=== PATIENT | female | born 1970 | race Hispanic/Latino ===

== ENCOUNTER 2019-10-20 17:03 | Emergency (ER) | payer OTHER ==
[~2019-10-20] VITALS: Ht 162.6 cm; Wt 80.7 kg
[2019-10-20] MEDS ORDERED: HYDRALAZINE HCL 20 MG/ML VIAL IV STA (17:22)
[2019-10-20] MEDS ORDERED: KETOROLAC TROMETHAMINE 30 MG/ML VIAL IV STA (17:22)
[2019-10-20] MEDS ORDERED: ASPIRIN 81 MG CHEW TAB PO ONE (17:30)
[2019-10-20] MEDS ORDERED: ONDANSETRON HCL INJ 2MG/ML 2ML 2 MG/ML VIAL IV PRN (17:30)
[2019-10-20 17:56] LABS: BASOPHILS # (AUTO) 0.1 (0.0-0.1); BASOPHILS % 0.6 % (0.0-1.0); EOSINOPHILS # (AUTO) 11.5 (0.0-0.4); EOSINOPHILS % 56.2 % (0.0-6.0); HEMATOCRIT 39.6 % (34.2-44.1); HEMOGLOBIN 12.6 g/dL (12.0-16.0); LYMPHOCYTES # (AUTO) 4.7 (1.0-3.2); LYMPHOCYTES % 22.8 % (18.0-39.1); MEAN CORPUSCULAR HEMOGLOBIN 29.7 pg (28-32); MEAN CORPUSCULAR HGB CONC 31.8 g/dL (31-35); MEAN CORPUSCULAR VOLUME 93.4 fL (81-99); MONOCYTES # (AUTO) 0.6 (0.2-0.8); MONOCYTES % 2.7 % (4.4-11.3); NEUTROPHILS # (AUTO) 3.6 (2.1-6.9); NEUTROPHILS % 17.5 % (38.7-80.0); PLATELET COUNT 304 x10e3/uL (140-360); RED BLOOD COUNT 4.24 x10e6/uL (3.6-5.1); RED CELL DISTRIBUTION WIDTH 14.7 % (11.7-14.4)
[2019-10-20 18:17] LABS: ALANINE AMINOTRANSFERASE 18 IU/L (0-55); ALBUMIN 3.9 g/dL (3.5-5.0); ALBUMIN/GLOBULIN RATIO 0.8 (0.8-2.0); ALKALINE PHOSPHATASE 122 IU/L (40-150); ANION GAP 12.4 mmol/L (8-16); BLOOD UREA NITROGEN 13 mg/dL (7-26); BUN/CREATININE RATIO 15 (6-25); CALCIUM 9.3 mg/dL (8.4-10.2); CARBON DIOXIDE 25 mmol/L (22-29); CHLORIDE 102 mmol/L (98-107); CREATINE KINASE 56 IU/L (29-168); CREATININE, SERUM 0.87 mg/dL (0.57-1.11); EST GLOMERULAR FILTRATION RATE > 60 ML/MIN (60-); GLUCOSE 133 mg/dL (74-118); POTASSIUM 3.4 mmol/L (3.5-5.1); SODIUM 136 mmol/L (136-145)
--- NOTE | 2019-10-20 18:28 | Diagnostic Imaging Report ---
EXAM: CHEST SINGLE (NOT PORTABLE) DATE: 10/20/2019 5:22 PM INDICATION: ^cp ^[id number] COMPARISON: None FINDINGS: Lines and tubes: None Heart size normal. No focal pulmonary opacity, pleural effusion or pneumothorax. Upper abdomen unremarkable. No acute bony abnormality. IMPRESSION: No evidence for acute disease. Signed by: Dr. Jb Lacy M.D. on 10/20/2019 6:26 PM
[2019-10-20 20:53] VITALS: BP 164/94
== END 2019-10-20 20:55 | disposition home or self-care (01) ==
LOC: ER 17:03
DX: R07.89 Other chest pain (principal); S29.012A Strain of muscle and tendon of back wall of thorax, initial encounter; I10 Essential (primary) hypertension
CPT/HCPCS: 36415; 71045; 80053; 82550; 82553; 84484; 85025; 93005; 99284; J0360; J1885; J2405

== ENCOUNTER 2019-11-01 21:56 | Emergency (ER) | payer OTHER ==
[~2019-11-01] VITALS: Ht 162.6 cm; Wt 80.7 kg
--- OUTSIDE RECORDS SUMMARY | 2019-11-01 21:59 | XMS REPORT ---
Author Author [facility] Address Unknown Phone Unavailable Care Team Providers Care Search And Rescue Officer Name Role Phone Chasidy DU Unavailable Unavailable Problems This patient has no known problems. Allergies, Adverse Reactions, Alerts This patient has no known allergies or adverse reactions. Medications This patient has no known medications. Encounters Start Date/Time End Date/Time Encounter Type Admission Type Attending Clinicians Care Facility Care Department Encounter ID 2019-02-26 16:04:00 2019-02-26 16:04:00 Emergency [id number] Results Test Description Test Time Test Comments Text Results Atomic Results Result Comments CHEST SINGLE (NOT PORTABLE) 2019-10-20 18:25:00 [place] [id number] Patient Name: LOIDA SAMANIEGO MR #: [id number] : 1970 Age/Sex: 49/F Req #: [id number] Adm Physician: Ordered by: LIZZIE DU MD Report #: [id number] Location: ER Room/Bed: Procedure: [id number] DX/CHEST SINGLE (NOT PORTABLE) Exam Date: 10/20/19 Exam Time: 1739 REPORT STATUS: Signed EXAM: CHEST SINGLE (NOT PORTABLE) DATE: 10/20/2019 5:22 PM INDICATION: [id number] COMPARISON: None FINDINGS: Lines and tubes: None Heart size normal. No focal pulmonary opacity, pleural effusion or pneumothorax. Upper abdomen unremarkable. No acute bony abnormality. IMPRESSION: No evidence for acute disease. Signed by: Dr. Lakeisha Alvarado M.D. on 10/20/2019 6:26 PM Dictated By: LAKEISHA ALVARADO MD 25 Transcribed By: ARUNA on 10/20/191825 COPY TO: LIZZIE DU MD
[2019-11-01] MEDS ORDERED: ACETAMINOPHEN 325 MG TAB ONE (23:06)
[2019-11-01 23:37] LABS: INFLUENZAE A&B ANTIGEN (RAPID) NEGATIVE (NEGATIVE); STREPTOCOCCUS GRP A ANTIGEN NEGATIVE (NEGATIVE)
--- NOTE | 2019-11-02 00:01 | Diagnostic Imaging Report ---
EXAMINATION: CHEST 2 VIEWS INDICATION: Fever. COMPARISON: Chest radiograph 10/20/2019. FINDINGS: TUBES and LINES: None. LUNGS: Lungs are moderately inflated. There is no evidence of pneumonia or pulmonary edema. PLEURA: No pleural effusion or pneumothorax. HEART AND MEDIASTINUM: The cardiomediastinal silhouette is unremarkable. BONES AND SOFT TISSUES: No acute osseous lesion. Soft tissues are unremarkable. UPPER ABDOMEN: No free air under the diaphragm. IMPRESSION: No acute thoracic abnormality. Signed by: Dr. Shaun Paris MD on 11/01/2019 11:58 PM
[2019-11-02 02:39] VITALS: BP 160/106
== END 2019-11-02 02:44 | disposition home or self-care (01) ==
LOC: ER 21:56
DX: J20.9 Acute bronchitis, unspecified (principal)
CPT/HCPCS: 71046; 83518; 87070; 87400; 99283

== ENCOUNTER 2021-07-03 09:31 | Emergency (ER) | payer OTHER ==
[~2021-07-03] VITALS: Ht 162.6 cm; Wt 84.8 kg
[2021-07-03] MEDS ORDERED: CLEOCIN HCL300 MG PO (10:11)
== END 2021-07-03 10:25 | disposition home or self-care (01) ==
LOC: FSED 09:40
DX: M54.2 Cervicalgia (principal); R59.9 Enlarged lymph nodes, unspecified; R59.1 Generalized enlarged lymph nodes; R51.9 Headache, unspecified; I10 Essential (primary) hypertension
CPT/HCPCS: 99283

== ENCOUNTER 2021-11-01 23:01 | Emergency (ER) | payer OTHER ==
[~2021-11-01] VITALS: Ht 162.6 cm; Wt 79.8 kg
[~2021-11-01 23:01] MED LIST: CLEOCIN HCL300 MG PO
[2021-11-01] MEDS ORDERED: CEFDINIR250 MG/5 M PO (23:29)
[2021-11-01 23:33] VITALS: BP 191/111
== END 2021-11-01 23:33 | disposition home or self-care (01) ==
LOC: FSED 23:15
DX: J02.9 Acute pharyngitis, unspecified (principal); I10 Essential (primary) hypertension
CPT/HCPCS: 99282

== ENCOUNTER 2024-12-14 13:57 | Emergency (ER) | payer OTHER ==
[~2024-12-14] VITALS: Ht 162.6 cm; Wt 79.8 kg
[~2024-12-14 13:57] MED LIST changes: +CEFDINIR250 MG/5 M PO
[2024-12-14 15:32] LABS: BASOPHILS % 0.2 % (0.0-1.0); EOSINOPHILS # (AUTO) 0.5 (0.0-0.4); EOSINOPHILS % 3.5 % (0.0-6.0); HEMATOCRIT 41.7 % (34.2-44.1); HEMOGLOBIN 14.1 g/dL (12.0-16.0); LYMPHOCYTES # (AUTO) 0.5 (1.0-3.2); LYMPHOCYTES % 3.9 % (18.0-39.1); MEAN CORPUSCULAR HEMOGLOBIN 31.3 pg (28-32); MEAN CORPUSCULAR HGB CONC 33.8 g/dL (31-35); MEAN CORPUSCULAR VOLUME 92.5 fL (81-99); MONOCYTES # (AUTO) 0.6 (0.2-0.8); MONOCYTES % 4.5 % (4.4-11.3); NEUTROPHILS # (AUTO) 11.6 (2.1-6.9); NEUTROPHILS % 87.5 % (38.7-80.0); PLATELET COUNT 219 x10e3/uL (140-360); RED BLOOD COUNT 4.51 x10e6/uL (3.6-5.1); RED CELL DISTRIBUTION WIDTH 12.7 % (11.7-14.4); WHITE BLOOD COUNT 13.23 x10e3/uL (4.8-10.8)
[2024-12-14 15:44] LABS: STREPTOCOCCUS GRP A ANTIGEN NEGATIVE (NEGATIVE)
[2024-12-14] MEDS: ACETAMINOPHEN 325 MG TAB PO ONE (15:47)
[2024-12-14 15:51] LABS: CORONAVIRUS COVID-19 AG NEGATIVE (NEGATIVE); INFLUENZA A AG NEGATIVE (NEGATIVE); INFLUENZA B AG NEGATIVE (NEGATIVE)
[2024-12-14 15:55] LABS: ALBUMIN 3.8 g/dL (3.5-5.0); ANION GAP 16.4 mmol/L (8-16); BILIRUBIN,TOTAL 0.6 mg/dL (0.2-1.2); CREATININE, SERUM 0.86 mg/dL (0.57-1.11); TOTAL PROTEIN 7.8 g/dL (6.5-8.1)
[2024-12-14 15:56] LABS: POTASSIUM 3.4 mmol/L (3.5-5.1)
[2024-12-14] MEDS: SODIUM CHLORIDE 0.9% 1000ML 1,000 ML IV SCH (16:06)
[2024-12-14] MEDS: KETOROLAC TROMETHAMINE 30 MG/ML VIAL IV STA (16:06)
[2024-12-14] MEDS ORDERED: DOXYCYCLINE HY100 MG PO (16:31)
[2024-12-14] MEDS ORDERED: CEFDINIR300 MG PO (16:31)
[2024-12-14 17:09] VITALS: PULSE 81; RESP 16; TEMP 99.7; O2SAT 99
== END 2024-12-14 17:45 | disposition home or self-care (01) ==
LOC: ER 14:30
DX: R50.9 Fever, unspecified (principal); J18.9 Pneumonia, unspecified organism; R05.9 Cough, unspecified; I10 Essential (primary) hypertension; Z11.52 Encounter for screening for COVID-19; R94.31 Abnormal electrocardiogram [ECG] [EKG]
CPT/HCPCS: 36415; 71046; 80053; 83518; 84484; 85025; 87040; 87070; 87428; 93005; 99284; J1885; J7030